=== PATIENT | female | born 1965 | race Caucasian/White ===

== ENCOUNTER 2018-09-14 10:33 | Emergency (ER) | payer SELFPAY ==
[2018-09-14] MEDS: IBUPROFEN LIQUID (PED) 20 MG/ML CUP PO (12:16)
[2018-09-14 12:58] LABS: MONOTEST Positive (NEG)
[2018-09-14 13:20] LABS: URINE BLOOD (Dip) POC 2+ (NEGATIVE); URINE GLUCOSE (Dip) POC Negative (NEGATIVE); URINE KETONES (Dip) POC Negative (NEGATIVE); URINE LEUKOCYTE EST (Dip) POC Negative (NEGATIVE); URINE NITRITE (Dip) POC Negative (NEGATIVE); URINE TOTAL PROTEIN POC Negative (NEGATIVE)
== END 2018-09-14 14:21 | disposition home or self-care (01) ==
LOC: FTE 14:21
DX: L03.211 Cellulitis of face (principal); J03.90 Acute tonsillitis, unspecified; B27.90 Infectious mononucleosis, unspecified without complication
CPT/HCPCS: 81003; 86308; 87880; 99283